=== PATIENT | male | born 1970 | race African-American/Black ===

== ENCOUNTER 2018-04-28 21:16 | Inpatient (IN) | payer OTHER ==
[2018-04-28 21:48] VITALS: BMI 27.3
--- NOTE | 2018-04-28 21:56 | HP ---
CIWA Score - CIWA Score Nausea/Vomitin Muscle Tremors: 2 Anxiety: 2 Agitation: 2 Paroxysmal Sweats: 2 Orientation: 1-Uncertain about Date Tacttile Disturbances: 2-Mild Itch/Numbness/Burn (both feet) Auditory Disturbances: 0-None Visual Disturbances: 0-None Headache: 3-Moderate CIWA-Ar Total Score: 16 Admission ROS BHS - HPI Chief Complaint: alcohol withdrawal symptoms Allergies/Adverse Reactions: Allergies Allergy/AdvReac Type Severity Reaction Status Date / Time No Known Allergies Allergy Verified 01/20/14 10:54 History of Present Illness: 47 yo male with alcohol dependence is here seeking detox. Patient was referred by [facility] after evaluation at the ED today. Denies suicidal / homicidal ideation or suicide attempt. Denies hx of seizures, reports frequent blackouts d/t alcohol use. Reports increase depression and alcohol intake as result of loosing employment. PMHX: DMII, HTN, Hep C, depression. Reports non-complaint with medication. Last detox [facility] one year ago. Exam Limitations: No Limitations - Ebola screening Have you been sick,other than usual withdrawal symptoms: No - Review of Systems Constitutional: Chills, Loss of Appetite, Changes in sleep, Unintentional Wgt. Loss EENT: reports: No Symptoms Reported, Blurred Vision (needs glasses) Respiratory: reports: No Symptoms reported GI: reports: Poor Appetite, Poor Fluid Intake, Vomiting, Indigestion : reports: No Symptoms Reported Musculoskeletal: reports: Back Pain Integumentary: reports: No Symptoms Reported Neuro: reports: Headache Endocrine: reports: Increased Thirst Hematology: reports: No Symptoms Reported Psychiatric: reports: Orientated x3, Depressed Other Systems: Reviewed and Negative Patient History - Patient Medical History Hx Anemia: No Hx Asthma: No Hx Chronic Obstructive Pulmonary Disease (COPD): No Hx Cancer: No Hx Cardiac Disorders: No Hx Congestive Heart Failure: No Hx Hypertension: Yes (NON COMPLIANT) Hx Hypercholesterolemia: No Hx Pacemaker: No HX Cerebrovascular Accident: No Hx Seizures: No Hx Dementia: No Hx Diabetes: Yes (non-compliant) Hx Gastrointestinal Disorders: No Hx Liver Disease: No Hx Genitourinary Disorders: No Hx Sexually Transmitted Disorders: No Hx Renal Disease (ESRD): No Hx Thyroid Disease: No Hx Human Immunodeficiency Virus (HIV): No (NEGATIVE IN 2009) Hx Hepatitis C: No Hx Depression: Yes Hx Suicide Attempt: No Hx Bipolar Disorder: No Hx Schizophrenia: No - Patient Surgical History Past Surgical History: Yes Hx Neurologic Surgery: No Hx Cataract Extraction: No Hx Cardiac Surgery: No Hx Lung Surgery: No Hx Breast Surgery: No Hx Breast Biopsy: No Hx Abdominal Surgery: No Hx Appendectomy: No Hx Cholecystectomy: No Hx Genitourinary Surgery: No Hx Section: No Hx Orthopedic Surgery: No Other Surgical History: left eyelid Anesthesia Reaction: No - PPD History Previous Implant?: No Documented Results: Negative w/proof Date: 12/22/12 PPD to be Administered?: Yes - Smoking Cessation Smoking history: Former smoker Have you smoked in the past 12 months: Yes Aproximately how many cigarettes per day: 0 Cigars Per Day: 0 Hx Chewing Tobacco Use: No Initiated information on smoking cessation: No - Substance & Tx. History Hx Alcohol Use: Yes Hx Substance Use: Yes Substance Use Type: Alcohol Hx Substance Use Treatment: Yes (Last detox [facility] one year ago.) - Substances Abused Alcohol Route: Oral Frequency: Daily Amount used: 2 pint liquor Age of first use: 24 Date of Last Use: 04/27/18 Family Disease History - Family Disease History Family History: Unable to Obtain Admission Physical Exam BHS - Vital Signs Vital Signs: Vital Signs - 24 hr 04/28/18 21:45 Temperature 97 F L Pulse Rate 97 H Respiratory 18 Rate Blood Pressure 118/85 - Physical General Appearance: Yes: Disheveled, Mild Distress, Anxious, Other (malodorous) HEENTM: Yes: EOMI, Hearing grossly Normal, Normal ENT Inspection, Normocephalic , Normal Voice, ZITA, Pharynx Normal, Tm's normal, Pale Conjunctivae R Respiratory: Yes: Chest Non-Tender, Lungs Clear, Normal Breath Sounds, No Respiratory Distress, No Accessory Muscle Use Neck: Yes: No masses,lesions,Nodules, Trachea in good position Breast: Yes: Breast Exam Deferred Cardiology: Yes: Regular Rhythm, Regular Rate Abdominal: Yes: Normal Bowel Sounds, Non Tender, Soft, Protuberent Genitourinary: Yes: Within Normal Limits Back: Yes: Normal Inspection Musculoskeletal: Yes: full range of Motion, Gait Steady, Pelvis Stable, Back pain Extremities: Yes: Normal Capillary Refill, Normal Inspection, Normal Range of Motion, Non-Tender, Pedal Edema (bilateral) Integumentary: Yes: Normal Color, Warm, Diaphoresis Lymphatic: Yes: Within Normal Limits - Diagnostic (1) Alcohol dependence with withdrawal Current Visit: Yes Status: Acute Qualifiers: Complication of substance-induced condition: uncomplicated Qualified Code(s ): F10.230 - Alcohol dependence with withdrawal, uncomplicated (2) Diabetes mellitus Current Visit: Yes Status: Chronic Qualifiers: Diabetes mellitus type: type 2 Diabetes mellitus mcc insulin use: unspecified mcc insulin use status (3) Essential hypertension Current Visit: Yes Status: Chronic Cleared for Admission [facility] - Detox or Rehab [facility] Level of Care: Medically Managed Detox Regimen/Protocol: Librium [facility] Breath Alcohol Content Breath Alcohol Content: 0 Urine Drug Screen - Results Drug Screen Negative: No Urine Drug Screen Results: BZO-Benzodiazepines
[2018-04-28] MEDS ORDERED: MELATONIN 5 MG TABLETS PO PRN (22:00)
[2018-04-28] MEDS ORDERED: IBUPROFEN 400 MG TABLET (FP) PO PRN (22:03)
[2018-04-28] MEDS ORDERED: chlordiazePOXIDE HCL 25 MG CAPSULE PO PRN (22:03)
[2018-04-28] MEDS ORDERED: MENTHOL/PHENOL 1 EACH UD MM PRN (22:03)
[2018-04-28] MEDS ORDERED: guaiFENesin/D-METHORPHAN HB 10 ML UNIT-DOSE CUPS PO PRN (22:03)
[2018-04-28] MEDS ORDERED: MAGNESIUM CITRATE 300 ML BOTTLE PO PRN (22:03)
[2018-04-28] MEDS ORDERED: LOPERAMIDE HCL 2 MG CAPSULE PO PRN (22:03)
[2018-04-28] MEDS ORDERED: MAG HYDROX/AL HYDROX/SIMETH 30 ML UNIT-DOSE CUP PO PRN (22:03)
[2018-04-28] MEDS ORDERED: ACETAMINOPHEN 325 MG TABLET (FP) PO PRN (22:03)
[2018-04-28] MEDS ORDERED: P-EPHED 60MG/TRIPROLIDI 2.5MG TABLET PO PRN (22:03)
[2018-04-28] MEDS ORDERED: MAGNESIUM HYDROX 2400MG/30ML ORAL SUSPENSION 30 ML CUP PO PRN (22:03)
[2018-04-28] MEDS ORDERED: chlordiazePOXIDE HCL 25 MG CAPSULE PO ONE (22:08)
[2018-04-29] MEDS: chlordiazePOXIDE HCL 25 MG CAPSULE PO SCH ×5 (01:34→22:15)
[2018-04-29 02:23] LABS: URINE APPEARANCE CLOUDY; URINE BILIRUBIN NEGATIVE (<2.0 mg/dL); URINE COLOR AMBER; URINE GLUCOSE (UA) NEGATIVE (NEGATIVE); URINE KETONE NEGATIVE (NEGATIVE); URINE NITRITE NEGATIVE (NEGATIVE)
[2018-04-29 02:24] LABS: URINE LEUK ESTERASE 3+ (NEGATIVE); URINE PROTEIN 2+ (NEGATIVE)
[2018-04-29 02:31] LABS: EPI CELLS RARE /HPF (FEW); URINE BACTERIA MODERATE /hpf (NONE SEEN); URINE MUCUS RARE
[2018-04-29 09:44] LABS: HEMATOCRIT 34.4 % (35.4-49); HEMOGLOBIN 10.8 GM/dL (11.7-16.9); MCH 24.4 pg (25.7-33.7); MCHC 31.4 g/dl (32.0-35.9); MEAN CELL VOLUME 77.7 fl (80-96); PLATELET COUNT 150 K/MM3 (134-434); RBC 4.43 M/mm3 (4.00-5.60); RDW 16.9 % (11.9-15.9); WHITE BLOOD COUNT 4.5 K/mm3 (4.0-10.0)
--- NOTE | 2018-04-29 10:09 | PN ---
S CIWA - CIWA Score Nausea/Vomitin-No Nausea/No Vomiting Muscle Tremors: 4-Moderate,w/Arms Extend Anxiety: 4-Mod. Anxious/Guarded Agitation: 3 Paroxysmal Sweats: 1-Minimal Palms Moist Orientation: 0-Oriented Tacttile Disturbances: 0-None Auditory Disturbances: 0-None Visual Disturbances: 0-None Headache: 0-None Present CIWA-Ar Total Score: 12 BHS Progress Note (SOAP) Subjective: ANXIETY,FATIGUE,TREMORS,BACKACHE, HEADACHE. Objective: 04/29/18 10:09 Last Vital Signs Temp Pulse Resp BP Pulse Ox 97.9 F 67 18 114/70 04/29/18 06:00 04/29/18 06:00 04/29/18 06:00 04/29/18 06:00 Laboratory Tests 04/29/18 04/29/18 04/29/18 00:33 06:09 07:00 WBC 4.5 D RBC 4.43 Hgb 10.8 L Hct 34.4 L MCV 77.7 L MCH 24.4 L MCHC 31.4 L RDW 16.9 H Plt Count 150 D MPV 9.0 D POC Glucometer 111 Urine Color Laura Urine Appearance Cloudy Urine pH 6.0 Ur Specific [place] 1.015 Urine Protein 2+ H Urine Glucose (UA) Negative Urine Ketones Negative Urine Blood 3+ H Urine Nitrite Negative Urine Bilirubin Negative Urine Urobilinogen 2.0 Ur Leukocyte Esterase 3+ H Urine WBC (Auto) 1120 Urine RBC (Auto) 401 Ur Epithelial Cells Rare Urine Bacteria Moderate Urine Mucus Rare UA NOTED Assessment: 04/29/18 10:14 WITHDRAWAL SX Plan: CONTINUE DETOX MOTRIN PRN
--- NOTE | 2018-04-29 10:17 | CONSULT ---
[facility] Psychiatric Consult - Data Date of interview: 04/29/18 Admission source: [facility] Identifying data: This is 47 years old AA single male admitted to [address] [place] [address] for Alcohol dependence. Substance Abuse History: Patient reports drinking since 24 years old,heavy drinker since about 10 years ago.Consumes about 2 pints of liquor daily. Medical History: Significant for DM,Hep C,HTN. Psychiatric History: Patient reports that he lost his job in [employer] about 12 years ago and started feeing depressed and drinking uncontrollably.He didnt address his issue to psychiatrist.Patient is willing to start antidepressants.He has no history of suicidality,no psychiatric hospitalizations ,no psychiatric care in the past. Physical/Sexual Abuse/Trauma History: Not willing to discuss. Mental Status Exam - Mental Status Exam Alert and Oriented to: Time, Place, Person Cognitive Function: Grossly Intact Patient Appearance: Unkempt Mood: Depressed, Sad Affect: Mood Congruent, Constricted Patient Behavior: Passive, Sedated, Cooperative Speech Pattern: Clear Voice Loudness: Normal Thought Process: Goal Oriented Thought Disorder: Not Present Hallucinations: Denies Suicidal Ideation: Denies Homicidal Ideation: Denies Insight/Judgement: Fair Sleep: Fair Appetite: Fair Muscle strength/Tone: Normal Gait/Station: Normal Psychiatric Findings - Problem List ([place] 1, 2,3) (1) Nicotine dependence Current Visit: Yes Status: Chronic (2) Alcohol dependence with withdrawal Current Visit: Yes Status: Chronic Qualifiers: Complication of substance-induced condition: uncomplicated Qualified Code(s ): F10.230 - Alcohol dependence with withdrawal, uncomplicated (3) Diabetes mellitus Current Visit: Yes Status: Chronic Qualifiers: Diabetes mellitus type: type 2 Diabetes mellitus residential insulin use: unspecified residential insulin use status (4) Essential hypertension Current Visit: Yes Status: Chronic (5) 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
[2018-04-29 10:58] LABS: CHLORIDE 104 mmol/L (98-107); POTASSIUM 3.3 mmol/L (3.5-5.1); SODIUM 141 mmol/L (136-145)
[2018-04-29 11:13] LABS: ALK PHOS 86 U/L (45-117); ANION GAP 10 (8-16); BILIRUBIN,TOTAL 0.6 mg/dL (0.2-1.0); BLOOD UREA NITROGEN 5 mg/dL (7-18); CALCIUM 8.2 mg/dL (8.5-10.1); CO2 27 mmol/L (21-32); CREATININE 0.5 mg/dL (0.7-1.3); GLUCOSE,RANDOM 92 mg/dL (74-106); SGOT/AST 45 U/L (15-37); SGPT/ALT 26 U/L (12-78); TOT PROT 6.5 g/dl (6.4-8.2)
[2018-04-29] MEDS: FERROUS SO4 325 MG TABLET (FP) PO SCH ×2 (11:16→22:15)
[2018-04-29] MEDS: SERTRALINE HCL 50 MG TABLET (FP) PO SCH (11:16)
[2018-04-29] MEDS: PRENATAL VITAMINS W/ FOLIC ACID TABLET (FP) PO SCH (11:17)
[2018-04-29] MEDS ORDERED: POTASSIUM CHLORIDE ORAL LIQUID 20 MEQ/15 ML PO ONE (16:45)
[2018-04-29] MEDS ORDERED: SULFAMETHOXAZOLE/TRIMETHOPRIM 800MG/160MG D.S. TABLET PO ONE (16:45)
[2018-04-29] MEDS: THIAMINE HCL 100 MG TABLET (FP) PO SCH (22:15)
[2018-04-29] MEDS: SULFAMETHOXAZOLE/TRIMETHOPRIM 800MG/160MG D.S. TABLET PO SCH (22:15)
[2018-04-29] MEDS: POTASSIUM CHLORIDE ORAL LIQUID 20 MEQ/15 ML PO SCH (22:16)
[2018-04-30] MEDS: chlordiazePOXIDE HCL 25 MG CAPSULE PO SCH ×3 (05:53→18:10)
[2018-04-30] MEDS: FERROUS SO4 325 MG TABLET (FP) PO SCH ×2 (10:55→22:36)
[2018-04-30] MEDS: SERTRALINE HCL 50 MG TABLET (FP) PO SCH (10:55)
[2018-04-30] MEDS: POTASSIUM CHLORIDE ORAL LIQUID 20 MEQ/15 ML PO SCH ×2 (10:55→22:35)
[2018-04-30] MEDS: PRENATAL VITAMINS W/ FOLIC ACID TABLET (FP) PO SCH (10:55)
[2018-04-30] MEDS: SULFAMETHOXAZOLE/TRIMETHOPRIM 800MG/160MG D.S. TABLET PO SCH ×2 (10:55→22:35)
--- NOTE | 2018-04-30 11:15 | PN ---
S CIWA - CIWA Score Nausea/Vomitin Muscle Tremors: 2 Anxiety: 2 Agitation: 2 Paroxysmal Sweats: 2 Orientation: 0-Oriented Tacttile Disturbances: 1-Very Mild Itch/Numbness Auditory Disturbances: 1-Very Mild Visual Disturbances: 2-Mild Sensitivity Headache: 2-Mild CIWA-Ar Total Score: 16 S Progress Note (SOAP) Subjective: Generalized malaise, back pain, nausea and abdominal cramps Objective: 04/30/18 11:14 Vital Signs - 8 hr 04/30/18 04/30/18 04/30/18 03:30 06:27 10:34 Temperature 97.9 F 98.2 F Pulse Rate 70 90 Respiratory 18 18 20 Rate Blood Pressure 116/71 124/86 Laboratory Last Values WBC 4.5 K/mm3 (4.0-10.0) D 04/29/18 07:00 RBC 4.43 M/mm3 (4.00-5.60) 04/29/18 07:00 Hgb 10.8 GM/dL (11.7-16.9) L 04/29/18 07:00 Hct 34.4 % (35.4-49) L 04/29/18 07:00 MCV 77.7 fl (80-96) L 04/29/18 07:00 MCH 24.4 pg (25.7-33.7) L 04/29/18 07:00 MCHC 31.4 g/dl (32.0-35.9) L 04/29/18 07:00 RDW 16.9 % (11.9-15.9) H 04/29/18 07:00 Plt Count 150 K/MM3 (134-434) D 04/29/18 07:00 MPV 9.0 fl (7.5-11.1) D 04/29/18 07:00 Sodium 141 mmol/L (136-145) 04/29/18 07:00 Potassium 3.3 mmol/L (3.5-5.1) L 04/29/18 07:00 Chloride 104 mmol/L (98-107) 04/29/18 07:00 Carbon Dioxide 27 mmol/L (21-32) 04/29/18 07:00 Anion Gap 10 (8-16) 04/29/18 07:00 BUN 5 mg/dL (7-18) L 04/29/18 07:00 Creatinine 0.5 mg/dL (0.7-1.3) L 04/29/18 07:00 Creat Clearance w eGFR > 60 (>60) 04/29/18 07:00 POC Glucometer 94 UNITS (80-120) 04/30/18 06:00 Random Glucose 92 mg/dL (74-106) D 04/29/18 07:00 Calcium 8.2 mg/dL (8.5-10.1) L 04/29/18 07:00 Total Bilirubin 0.6 mg/dL (0.2-1.0) D 04/29/18 07:00 AST 45 U/L (15-37) H D 04/29/18 07:00 ALT 26 U/L (12-78) D 04/29/18 07:00 Alkaline Phosphatase 86 U/L (45-117) 04/29/18 07:00 Total Protein 6.5 g/dl (6.4-8.2) 04/29/18 07:00 Albumin 3.0 g/dl (3.4-5.0) L 04/29/18 07:00 Urine Color Laura 04/29/18 00:33 Urine Appearance Cloudy 04/29/18 00:33 Urine pH 6.0 (5.0-8.0) 04/29/18 00:33 Ur Specific [place] 1.015 (1.001-1.035) 04/29/18 00:33 Urine Protein 2+ (NEGATIVE) H 04/29/18 00:33 Urine Glucose (UA) Negative (NEGATIVE) 04/29/18 00:33 Urine Ketones Negative (NEGATIVE) 04/29/18 00:33 Urine Blood 3+ (NEGATIVE) H 04/29/18 00:33 Urine Nitrite Negative (NEGATIVE) 04/29/18 00:33 Urine Bilirubin Negative (<2.0 mg/dL) 04/29/18 00:33 Urine Urobilinogen 2.0 mg/dL (0.2-1.0) 04/29/18 00:33 Ur Leukocyte Esterase 3+ (NEGATIVE) H 04/29/18 00:33 Urine WBC (Auto) 1120 /hpf (3-5) 04/29/18 00:33 Urine RBC (Auto) 401 /hpf (0-3) 04/29/18 00:33 Ur Epithelial Cells Rare /HPF (FEW) 04/29/18 00:33 Urine Bacteria Moderate /hpf (NONE SEEN) 04/29/18 00:33 Urine Mucus Rare 04/29/18 00:33 Labs noted Assessment: 04/30/18 11:14 Withdrawal sx UTI Plan: Continue detox Continue Bactrim Encourage oral fluid intake
[2018-04-30 13:27] LABS: URINE APPEARANCE CLEAR; URINE BILIRUBIN NEGATIVE (<2.0 mg/dL); URINE COLOR LTYELLOW; URINE GLUCOSE (UA) NEGATIVE (NEGATIVE); URINE KETONE NEGATIVE (NEGATIVE); URINE NITRITE NEGATIVE (NEGATIVE); URINE PROTEIN NEGATIVE (NEGATIVE); URINE UROBILINOGEN NEGATIVE mg/dL (0.2-1.0)
[2018-04-30 13:37] LABS: URINE LEUK ESTERASE 2+ (NEGATIVE)
[2018-04-30 13:41] LABS: EPI CELLS RARE /HPF (FEW)
[2018-04-30] MEDS: chlordiazePOXIDE 5 MG CAPSULE PO SCH (22:35)
[2018-04-30] MEDS: THIAMINE HCL 100 MG TABLET (FP) PO SCH (22:35)
[2018-05-01] MEDS: chlordiazePOXIDE 5 MG CAPSULE PO SCH ×3 (06:35→17:35)
[2018-05-01] MEDS: SERTRALINE HCL 50 MG TABLET (FP) PO SCH (10:56)
[2018-05-01] MEDS: FERROUS SO4 325 MG TABLET (FP) PO SCH (10:56)
[2018-05-01] MEDS: SULFAMETHOXAZOLE/TRIMETHOPRIM 800MG/160MG D.S. TABLET PO SCH (10:56)
[2018-05-01] MEDS: PRENATAL VITAMINS W/ FOLIC ACID TABLET (FP) PO SCH (10:56)
[2018-05-01] MEDS: POTASSIUM CHLORIDE ORAL LIQUID 20 MEQ/15 ML PO SCH (10:57)
[2018-05-01 11:14] LABS: HEMATOCRIT 36.4 % (35.4-49); HEMOGLOBIN 11.7 GM/dL (11.7-16.9); MCH 24.8 pg (25.7-33.7); MCHC 32.1 g/dl (32.0-35.9); MEAN CELL VOLUME 77.3 fl (80-96); MEAN PLT VOLUME 8.5 fl (7.5-11.1); PLATELET COUNT 206 K/MM3 (134-434); RBC 4.71 M/mm3 (4.00-5.60); RDW 16.3 % (11.9-15.9); WHITE BLOOD COUNT 4.9 K/mm3 (4.0-10.0)
[2018-05-01 11:20] LABS: ALBUMIN 3.5 g/dl (3.4-5.0); ANION GAP 5 (8-16); BLOOD UREA NITROGEN 5 mg/dL (7-18); CALCIUM 8.8 mg/dL (8.5-10.1); CHLORIDE 98 mmol/L (98-107); CO2 31 mmol/L (21-32); CREATININE 0.7 mg/dL (0.7-1.3); GLUCOSE,RANDOM 86 mg/dL (74-106); POTASSIUM 4.1 mmol/L (3.5-5.1); SGOT/AST 31 U/L (15-37); SGPT/ALT 26 U/L (12-78); SODIUM 134 mmol/L (136-145)
[2018-05-01 11:22] LABS: ALK PHOS 85 U/L (45-117); BILIRUBIN,TOTAL 0.4 mg/dL (0.2-1.0); TOT PROT 7.6 g/dl (6.4-8.2)
--- NOTE | 2018-05-01 14:19 | PN ---
BHS Progress Note (SOAP) Subjective: feeling better less sweat no tremor Objective: 05/01/18 14:19 Vital Signs Temperature 98.2 F 05/01/18 13:15 Pulse Rate 74 05/01/18 13:15 Respiratory Rate 18 05/01/18 13:15 Blood Pressure 118/78 05/01/18 13:15 O2 Sat by Pulse Oximetry (%) Laboratory Last Values WBC 4.9 K/mm3 (4.0-10.0) 05/01/18 07:30 RBC 4.71 M/mm3 (4.00-5.60) 05/01/18 07:30 Hgb 11.7 GM/dL (11.7-16.9) 05/01/18 07:30 Hct 36.4 % (35.4-49) 05/01/18 07:30 MCV 77.3 fl (80-96) L 05/01/18 07:30 MCH 24.8 pg (25.7-33.7) L 05/01/18 07:30 MCHC 32.1 g/dl (32.0-35.9) 05/01/18 07:30 RDW 16.3 % (11.9-15.9) H 05/01/18 07:30 Plt Count 206 K/MM3 (134-434) D 05/01/18 07:30 MPV 8.5 fl (7.5-11.1) 05/01/18 07:30 Sodium 134 mmol/L (136-145) L 05/01/18 07:30 Potassium 4.1 mmol/L (3.5-5.1) D 05/01/18 07:30 Chloride 98 mmol/L (98-107) 05/01/18 07:30 Carbon Dioxide 31 mmol/L (21-32) 05/01/18 07:30 Anion Gap 5 (8-16) L 05/01/18 07:30 BUN 5 mg/dL (7-18) L 05/01/18 07:30 Creatinine 0.7 mg/dL (0.7-1.3) 05/01/18 07:30 Creat Clearance w eGFR > 60 (>60) 05/01/18 07:30 POC Glucometer 96 UNITS (80-120) 04/30/18 16:39 Random Glucose 86 mg/dL (74-106) 05/01/18 07:30 Calcium 8.8 mg/dL (8.5-10.1) 05/01/18 07:30 Total Bilirubin 0.4 mg/dL (0.2-1.0) 05/01/18 07:30 AST 31 U/L (15-37) D 05/01/18 07:30 ALT 26 U/L (12-78) 05/01/18 07:30 Alkaline Phosphatase 85 U/L (45-117) 05/01/18 07:30 Total Protein 7.6 g/dl (6.4-8.2) 05/01/18 07:30 Albumin 3.5 g/dl (3.4-5.0) 05/01/18 07:30 Urine Color L[place] 04/30/18 10:22 Urine Appearance Clear 04/30/18 10:22 Urine pH 6.0 (5.0-8.0) 04/30/18 10:22 Ur Specific [place] 1.010 (1.001-1.035) 04/30/18 10:22 Urine Protein Negative (NEGATIVE) 04/30/18 10:22 Urine Glucose (UA) Negative (NEGATIVE) 04/30/18 10:22 Urine Ketones Negative (NEGATIVE) 04/30/18 10:22 Urine Blood Negative (NEGATIVE) 04/30/18 10:22 Urine Nitrite Negative (NEGATIVE) 04/30/18 10:22 Urine Bilirubin Negative (<2.0 mg/dL) 04/30/18 10:22 Urine Urobilinogen Negative mg/dL (0.2-1.0) 04/30/18 10:22 Ur Leukocyte Esterase 2+ (NEGATIVE) H 04/30/18 10:22 Urine WBC (Auto) 42 /hpf (3-5) 04/30/18 10:22 Urine RBC (Auto) None /hpf (0-3) 04/30/18 10:22 Ur Epithelial Cells Rare /HPF (FEW) 04/30/18 10:22 Urine Bacteria Moderate /hpf (NONE SEEN) 04/29/18 00:33 Urine Mucus Rare 04/29/18 00:33 RPR Titer Nonreactive (NONREACTIVE) 04/29/18 07:00 lab noted 05/01/18 14:20 discontinue K+ supplement Assessment: 05/01/18 14:21 mild withdrawal sx uti Plan: medically supervised detox bactrim ds bid
[2018-05-02] MEDS: chlordiazePOXIDE HCL 10 MG CAPSULE PO SCH ×2 (06:38→08:41)
[2018-05-02 08:22] VITALS: BP 100/66; PULSE 65; TEMP 97.9
[2018-05-02] MEDS: SULFAMETHOXAZOLE/TRIMETHOPRIM 800MG/160MG D.S. TABLET PO SCH (08:41)
[2018-05-02] MEDS: THIAMINE HCL 100 MG TABLET (FP) PO SCH (08:41)
[2018-05-02] MEDS: FERROUS SO4 325 MG TABLET (FP) PO SCH (08:41)
--- NOTE | 2018-05-02 10:14 | PN ---
S Progress Note (SOAP) Subjective: ALERT,NO COMPLAINT Objective: 05/02/18 10:12 Vital Signs Temperature 97.9 F 05/02/18 08:22 Pulse Rate 65 05/02/18 08:22 Respiratory Rate 18 05/02/18 08:22 Blood Pressure 100/66 05/02/18 08:22 O2 Sat by Pulse Oximetry (%) Assessment: 05/02/18 10:13 DETOX COMPLETED,NO WITHDRAWAL SYMPTOM Plan: DISCHARGE TODAY,FOLLOW UP WITH AFTER CARE PROGRAM ARRANGEMENT
--- NOTE | 2018-05-02 10:19 | DS ---
[facility] Detox Discharge Summary Admission Date: 04/28/18 Discharge Date: 05/02/18 - History Present History: Alcohol Dependence Pertinent Past History: TYPE 2 DM HYPERTENSION - Physical Exam Results Vital Signs: Vital Signs Temperature 97.9 F 05/02/18 08:22 Pulse Rate 65 05/02/18 08:22 Respiratory Rate 18 05/02/18 08:22 Blood Pressure 100/66 05/02/18 08:22 O2 Sat by Pulse Oximetry (%) Pertinent Admission Physical Exam Findings: WITHDRAWAL SYMPTOM - Treatment Hospital Course: Detox Protocol Followed, Detoxed Safely, Responded well, Discharged Condition Good - Medication Discharge Medications: Ambulatory Orders Sertraline HCl [Zoloft -] 50 mg PO DAILY #30 tablet 04/29/18 Sulfamethoxazole/Trimethoprim [Bactrim DS -] 1 each PO BID #7 tablet 05/01/18 - Diagnosis (1) Alcohol dependence with withdrawal Current Visit: Yes Status: Acute Qualifiers: Complication of substance-induced condition: uncomplicated Qualified Code(s ): F10.230 - Alcohol dependence with withdrawal, uncomplicated (2) Nicotine dependence Current Visit: Yes Status: Acute Qualifiers: Nicotine product type: cigarettes Substance use status: uncomplicated Qualified Code(s): F17.210 - Nicotine dependence, cigarettes, uncomplicated (3) Diabetes mellitus Current Visit: Yes Status: Chronic Qualifiers: Diabetes mellitus type: type 2 Diabetes mellitus exterminator insulin use: unspecified exterminator insulin use status (4) Essential hypertension Current Visit: Yes Status: Chronic (5) Nicotine dependence Current Visit: Yes Status: Chronic - AMA Did Patient Leave Against Medical Advice: No
--- NOTE | 2018-05-02 22:17 | EKG ---
Test Reason : Blood Pressure : / mmHG Vent. Rate : 098 BPM Atrial Rate : 098 BPM P-R Int : 166 ms QRS Dur : 084 ms QT Int : 344 ms P-R-T Axes : 048 007 011 degrees QTc Int : 439 ms NORMAL SINUS RHYTHM NORMAL ECG NO PREVIOUS ECGS AVAILABLE Confirmed by LINDA LLANES MD ([id number]) on 05/02/2018 10:17:24 PM Referred By: Confirmed By:LINDA LLANES MD
--- NOTE | 2018-05-02 22:19 | EKG ---
Test Reason : Blood Pressure : / mmHG Vent. Rate : 079 BPM Atrial Rate : 079 BPM P-R Int : 172 ms QRS Dur : 088 ms QT Int : 388 ms P-R-T Axes : 055 009 028 degrees QTc Int : 444 ms NORMAL SINUS RHYTHM NORMAL ECG NO PREVIOUS ECGS AVAILABLE Confirmed by LINDA LLANES MD ([id number]) on 05/02/2018 10:19:26 PM Referred By: Confirmed By:LINDA LLANES MD
== END 2018-05-02 10:21 | disposition home or self-care (01) | DRG 775 ==
LOC: YASAS 21:16 → Y6N 23:09
PROVIDERS: ADMIT Family Medicine Addiction Medicine; ATTEND Family Medicine Addiction Medicine
PROC: HZ2ZZZZ Detoxification Services for Substance Abuse Treatment (ICD-10-PCS; principal; 2018-04-28)
DX: F10.230 Alcohol dependence with withdrawal, uncomplicated (principal); F10.24 Alcohol dependence with alcohol-induced mood disorder; F17.210 Nicotine dependence, cigarettes, uncomplicated; I10 Essential (primary) hypertension; E11.9 Type 2 diabetes mellitus without complications; N39.0 Urinary tract infection, site not specified; D50.9 Iron deficiency anemia, unspecified; E87.6 Hypokalemia; Z91.14 Patient's other noncompliance with medication regimen; Z59.0 Homelessness
CPT/HCPCS: 36415; 80053; 81003; 81015; 82962; 85027; 86593; 87086; 87186; 93005; 93010

== ENCOUNTER 2019-01-28 09:11 | Inpatient (IN) | payer OTHER | END 2019-01-31 09:42 | disposition home or self-care (01) | LOC: YASAS 09:11 → Y3N 12:22 ==